=== PATIENT | male | born 1990 | race Caucasian/White ===

== ENCOUNTER 2020-02-25 01:22 | Emergency (ER) | payer OTHER ==
[~2020-02-25] VITALS: Ht 177.8 cm; Wt 114.0 kg
[2020-02-25] MEDS ORDERED: MORPHINE SULFATE 4 MG/ML, 1ML IVPush ONE ×2 (02:00→03:00)
[2020-02-25] MEDS ORDERED: ONDANSETRON 2MG/ML, 2ML IVPush ONE ×2 (02:00→03:00)
--- NOTE | 2020-02-25 02:07 | NUR ---
PT CAME INTO ED TONIGHT AFTER A GLF, PUT OUT LEFT ARM AND THINKS HE BROKE IT. LEFT LOWER ARM HAS NOTICABLE SWELLING AND DEFORMITY, PT REPORTS PAIN, CAN STILL MOVE FINGERS, CMS INTACT, PULSES 2+. PT LAST MEAL WAS A CARNE ANGELICA BURRITO AT 1900, NAD. AT BS PT PLACED ON SPO2/BP MONITORING. STEPHAN STAUFFER AT BS FOR EVAL AND POC. PT MEDICATED PER MAR FOR PAIN, WCTM. WAITING FOR RAD RESULTS.
--- NOTE | 2020-02-25 02:57 | NUR ---
ORTHO CONSULTING ON PT CASE. PT NAD, APPEARS COMFORTABLE, SKIN WARM AND DRY, NO CHAGNE IN CONDITION, EYES CLOSED, EVEN AND UNLABORED RESPIRATIONS, AT BS. WCTM. WAITING FOR CONSULT RESULTS.
[2020-02-25] MEDS ORDERED: MORPHINE SULFATE 4 MG/ML, 1ML ONE (03:23)
[2020-02-25 03:54] VITALS: BP 156/96
--- NOTE | 2020-02-25 03:55 | NUR ---
Patient/Spouse given discharge instructions and they have confirmed that they understand the instructions. Patient ambulatory with steady gait. denies additional questions or needs. Given extra ice packs. NAD, confirms he will follow up with ortho. No personal belonings left in room after DC.
[2020-02-25] MEDS ORDERED: ONDANSETRON ODT 4 MG ONE (04:02)
[2020-02-25] MEDS ORDERED: ONDANSETRON ODT 4 MG PO ONE (04:30)
== END 2020-02-25 04:07 | disposition home or self-care (01) ==
LOC: ED 03:02
DX: S52.352A Displaced comminuted fracture of shaft of radius, left arm, initial encounter for closed fracture (principal); S52.252A Displaced comminuted fracture of shaft of ulna, left arm, initial encounter for closed fracture; W01.0XXA Fall on same level from slipping, tripping and stumbling without subsequent striking against object, initial encounter; Y93.89 Activity, other specified; Y92.009 Unspecified place in unspecified non-institutional (private) residence as the place of occurrence of the external cause; Y99.8 Other external cause status
CPT/HCPCS: 29125; 73090; 96374; 96375; 96376; 99284; J2270; J2405; Q0162

== ENCOUNTER 2020-02-29 08:08 | Day surgery (SDC) | payer OTHER ==
[~2020-02-29] VITALS: Ht 177.8 cm; Wt 112.4 kg
[~2020-02-29 08:08] MED LIST: BUPIVACAINE/PF 0.5% ONE
[2020-02-29] MEDS ORDERED: LIDOCAINE-MPF 1%, 2ML ONE (08:57)
[2020-02-29] MEDS ORDERED: CHLORHEXIDINE 15 ML UDC ONE (08:57)
[2020-02-29] MEDS ORDERED: CHLORHEXIDINE 15 ML UDC MM ONE (09:00)
[2020-02-29] MEDS ORDERED: LACTATED RINGERS 1,000 ML IV SCH (09:00)
[2020-02-29] MEDS ORDERED: LIDOCAINE-MPF 1%, 2ML INFIL ONE (09:00)
[2020-02-29 09:10] VITALS: BP 165/124
[2020-02-29] MEDS ORDERED: MONT10TA6 PO (09:10)
[2020-02-29] MEDS ORDERED: FENTANYL PF 250 MCG/5ML ONE (09:25)
[2020-02-29] MEDS ORDERED: MIDAZOLAM 1 MG/ML, 5ML ONE (09:25)
[2020-02-29] MEDS ORDERED: FENTANYL PF 100 MCG/2ML IV PRN (09:30)
[2020-02-29] MEDS ORDERED: LABETALOL 5MG/ML, 20ML IV PRN (09:30)
[2020-02-29] MEDS ORDERED: HYDROcodone/APAP 7.5-325MG/15ML UDC PO PRN (09:30)
[2020-02-29] MEDS ORDERED: hydrALAzine 20 MG/ML, 1ML IV PRN (09:30)
[2020-02-29] MEDS ORDERED: HYDROmorphone 1 MG/ML, 1ML INJ IVPush PRN (09:30)
[2020-02-29] MEDS ORDERED: DIPHENHYDRAMINE 50 MG/ML, 1ML IVPush PRN (09:30)
[2020-02-29] MEDS ORDERED: HALOPERIDOL 5 MG/ML IV PRN (09:30)
[2020-02-29] MEDS ORDERED: PROMETHAZINE 25 MG/ML, 1ML IVPush PRN (09:30)
[2020-02-29] MEDS ORDERED: PLEASE ENTER HEIGHT AND WEIGHT MC SCH (09:30)
[2020-02-29] MEDS ORDERED: MEPERIDINE/PF 25MG/0.5ML IVPush PRN (09:30)
[2020-02-29] MEDS ORDERED: SCOPOLAMINE 1MG PATCH TD ONE (10:00)
[2020-02-29] MEDS ORDERED: ROCURONIUM 10 MG/ML,10ML ONE (10:15)
[2020-02-29] MEDS ORDERED: NEOSTIGMINE 1 MG/ML, 10ML ONE (11:04)
[2020-02-29] MEDS ORDERED: DEXAMETHASONE 4 MG/ML, 1ML ONE (11:04)
[2020-02-29] MEDS ORDERED: SUCCINYLCHOLINE 20 MG/ML, 10ML ONE (11:04)
[2020-02-29] MEDS ORDERED: CEFAZOLIN 1,000 MG ONE (11:04)
[2020-02-29] MEDS ORDERED: ONDANSETRON 2MG/ML, 2ML ONE (11:04)
[2020-02-29] MEDS ORDERED: PROPOFOL 10 MG/ML, 20ML ONE (11:04)
[2020-02-29] MEDS ORDERED: GLYCOPYRROLATE 0.2MG/1ML, 5ML ONE (11:04)
== END 2020-02-29 16:30 | disposition home or self-care (01) ==
LOC: OUT 08:08
PROVIDERS: ATTEND Orthopaedic Surgery
DX: S52.352A Displaced comminuted fracture of shaft of radius, left arm, initial encounter for closed fracture (principal); Z20.828 Contact with and (suspected) exposure to other viral communicable diseases; S52.252A Displaced comminuted fracture of shaft of ulna, left arm, initial encounter for closed fracture; G89.18 Other acute postprocedural pain; Z79.891 Long term (current) use of opiate analgesic; Z79.899 Other long term (current) drug therapy; Z87.891 Personal history of nicotine dependence; V86.59XA Driver of other special all-terrain or other off-road motor vehicle injured in nontraffic accident, initial encounter; Y93.I9 Activity, other involving external motion; Y92.89 Other specified places as the place of occurrence of the external cause; Y99.8 Other external cause status
CPT/HCPCS: 25575; 36415; 64415; 71045; 73090; 87635; C1713; J0330; J0690; J1100; J2250; J2405; J2704; J2710; J3010; J7120; 76000